=== PATIENT | female | born 1950 | race Caucasian/White ===

== ENCOUNTER 2016-11-20 08:43 | Inpatient (IN) | payer MEDICARE ==
[2016-11-20 09:07] LABS: #Basophils 0.1 thou/uL (0.0-0.2); #Eosinphils 0.2 thou/uL (0.0-0.7); #Lymphocytes 3.4 thou/uL (1.20-3.40); #Monocytes 0.9 thou/uL (0.11-0.59); #Neutrophils 7.4 thou/uL (1.40-6.50); %Basophils 0.6 % (0.0-1.0); %Eosinophils 1.6 % (0.0-10.0); %Lymphocytes 28.3 % (21.0-51.0); %Monocytes 7.5 % (0.0-10.0); Mean Platelet Volume 6.4 fL (7.4-10.4); Red Blood Cell (RBC) Count 4.42 mill/uL (4.20-5.40)
[2016-11-20] MEDS ORDERED: Midazolam HCl 2 mg/2 ml Vial ONE (09:21)
[2016-11-20] MEDS ORDERED: Fentanyl 100 MCG/2 ML VIAL ONE (09:21)
[2016-11-20] MEDS ORDERED: Heparin 10,000 UNITS/1 ML VIAL ONE (09:28)
--- NOTE | 2016-11-20 09:30 | RAD ---
PORTABLE CHEST: HISTORY: Back pain. COMPARISON: 04/25/2016 FINDINGS: The lungs appear clear. The heart is mildly enlarged but appears stable. No infiltrate or effusion is seen. No significant vascular congestion. IMPRESSION: No acute abnormality. POS: [facility]
[2016-11-20 09:35] LABS: ALT (SGPT) 32 U/L (8-55); AST (SGOT) 14 U/L (5-34); Alkaline Phosphatase 110 U/L (40-150); Anion Gap 14 mmol/L (10-20); BUN (Urea Nitrogen) 21 mg/dL (9.8-20.1); Bilirubin, Total 0.3 mg/dL (0.2-1.2); CK (CPK) 20 U/L (29-168); Calc. Creatinine Clearance 0 mL/min (70-130); Calcium 9.7 mg/dL (7.8-10.44); Carbon Dioxide 24 mmol/L (23-31); Chloride 106 mmol/L (98-107); Estimated GFR-MDRD 54; Globulin 3.8 g/dL (2.4-3.5); Lipase 18 U/L (8-78); Protein, Total 7.6 g/dL (6.0-8.3)
[2016-11-20 09:37] LABS: Troponin I Less than 0.010 ng/mL (< 0.028)
[2016-11-20] MEDS ORDERED: Nitroglycerin 100MG/250ML BOT 250 ML ONE (09:39)
[2016-11-20 10:52] VITALS: BMI 31.7
[2016-11-20] MEDS ORDERED: Lisinopril 10 MG TAB PO SCH (11:15)
[2016-11-20] MEDS ORDERED: Sodium Chloride 0.9% 1,000 ML IV SCH (11:15)
[2016-11-20] MEDS ORDERED: Metoprolol Tartrate 25 MG TAB PO SCH (11:15)
[2016-11-20] MEDS: Lisinopril 10 MG TAB PO SCH ×2 (11:40→21:53)
[2016-11-20] MEDS: Metoprolol Tartrate 25 MG TAB PO SCH ×2 (11:40→21:54)
[2016-11-20 12:34] LABS: Troponin I 0.398 ng/mL (< 0.028)
--- NOTE | 2016-11-20 13:28 | HP ---
DATE OF ADMISSION: 11/20/2016 REASON FOR ADMISSION: Acute inferior myocardial infarction. HISTORY OF PRESENT ILLNESS: Ms. Ashley Badillo is a 66-year-old woman. She was at home doing well this morning when she had the sudden onset of severe substernal chest pain, which was unrelenting. She called an ambulance and was brought here to the emergency room. The initial EKG showed ST eleva tion in the inferior leads. The patient did have ST elevation in lead III. The current EKG is not on the chart for further review. The patient has never had pain like that previously otherwise had been moderately active and no major medical problems other than will be outlined below. ALLERGIES: AZITHROMYCIN, BACITRACIN, CODEINE, LATEX GLOVES, PENICILLIN, PREDNISONE MEDICATIONS: 1. The full list is still due, but she takes amlodipine, unknown dose.E 2. Lisinopril, unknown dose. 3. Nonsteroidal anti-inflammatory. Other medicines are still being discovered and documented. PAST MEDICAL HISTORY: As mentioned, she has a history of hypertension. She said she takes metformi n. She thinks she does not have diabetes, but reviewing the chart, she does have a history of high blood sugar unless March was elevated, indicates she probably does have diet controlled diabetes. FAMILY HISTORY: Negative for heart disease at a young age. SOCIAL HISTORY: No alcohol or tobacco. REVIEW OF SYSTEMS: Constitutional: No significant weight gain or loss. Vision: No changes. Hear ing: No changes. Pulmonary: No cough or wheezing. Gastrointestinal: No nausea, vomiting, diarrh ea. Skin: No rashes. Neurologic: No unilateral weakness or numbness. Psychiatric: No unusual d epression or anxiety. Hematologic: No unusual bruising. Genitourinary: No burning with urination . Musculoskeletal: No unusual joint pain. LABORATORY AND X-RAY FINDINGS: Initial EKG showed ST elevation in the inferior leads. The EKG is b eing located right now and did get a look at prior going to the emergency room, did show ST elevatio n in lead III. The EKG is not available for me to review, right this moment, but the [employer] Analyst she clearly had ST el evation in lead III. Cardiac exams initially were negative. ASSESSMENT: 1. Acute inferior myocardial infarction. 2. Hypertension. 3. Diabetes, diet controlled. PLAN: 1. The patient was advised to go to the cardiac catheterization urgently. She is not allergic to I ODINE. Discussed risks of stroke, heart attack, IODINE allergy, loss of blood supply to the leg or kidney, stent thrombosis, stent restenosis. The patient understands and wishes to proceed. Arrange ments were made to do this in immediate basis. 2. The patient was successfully treated with stent implantation 2.5 x 16 drug-eluting stent, placed successfully in the distal right coronary artery. 3. Hypertension. 4. LOLI inhibitors. 5. Beta blockers. 6. Statin therapy will be used. 7. Further care dictated by hospital course. The patient has improved status currently after stent implantation on an emergency basis.
[2016-11-20] MEDS: Nitroglycerin 2% Ointment 1 INCH/1 GM Packet TOP SCH ×2 (14:24→21:59)
[2016-11-20] MEDS ORDERED: cloNIDine HCl 0.1 MG TAB PO SCH (15:00)
[2016-11-20] MEDS: Fentanyl 100 MCG/2 ML VIAL SLOW IVP SCH ×2 (15:04→15:19)
--- NOTE | 2016-11-20 15:14 | EKG ---
Test Reason : POST STENT X 2 - RCA Blood Pressure : / mmHG Vent. Rate : 079 BPM Atrial Rate : 079 BPM P-R Int : 192 ms QRS Dur : 086 ms QT Int : 412 ms P-R-T Axes : 048 017 001 degrees QTc Int : 472 ms Normal sinus rhythm Normal ECG Confirmed by RICHMOND MACK ([id number]) on 11/20/2016 3:14:00 PM Referred By: NIDHI Confirmed By:RICHMOND MACK
[2016-11-20] MEDS ORDERED: Fentanyl 100 MCG/2 ML VIAL SLOW IVP SCH (16:00)
[2016-11-20] MEDS ORDERED: Iopamidol 370 76% 50 ML VIAL FS ONE (16:18)
[2016-11-20] MEDS ORDERED: Iopamidol 370 76% 100 ML VIAL ONE (16:18)
[2016-11-20 17:59] LABS: Troponin I 2.014 ng/mL (< 0.028)
[2016-11-20] MEDS ORDERED: Atorvastatin Calcium 40 MG TAB PO SCH (21:00)
[2016-11-20] MEDS: TICAGRELOR 90 MG TABLET PO SCH (21:58)
[2016-11-21] MEDS ORDERED: Heparin 10,000 UNITS/ 10 ML VIAL ONE (01:00)
[2016-11-21] MEDS ORDERED: Nitroglycerin 0.4 MG TAB (25 Tab Bottle) ONE (01:00)
[2016-11-21 04:54] LABS: #Eosinphils 0.1 thou/uL (0.0-0.7); #Lymphocytes 2.2 thou/uL (1.20-3.40); #Monocytes 0.8 thou/uL (0.11-0.59); #Neutrophils 7.8 thou/uL (1.40-6.50); %Basophils 0.1 % (0.0-1.0); %Eosinophils 1.2 % (0.0-10.0); %Lymphocytes 19.9 % (21.0-51.0); %Monocytes 6.9 % (0.0-10.0); Hematocrit 32.5 % (36.0-47.0); Mean Platelet Volume 6.8 fL (7.4-10.4); Red Blood Cell (RBC) Count 3.77 mill/uL (4.20-5.40); White Blood Cell (WBC) Count 10.8 thou/uL (4.8-10.8)
[2016-11-21 05:11] LABS: ALT (SGPT) 23 U/L (8-55); AST (SGOT) 20 U/L (5-34); Alkaline Phosphatase 86 U/L (40-150); Anion Gap 10 mmol/L (10-20); BUN (Urea Nitrogen) 17 mg/dL (9.8-20.1); Bilirubin, Total 0.3 mg/dL (0.2-1.2); Calc. Creatinine Clearance 93 mL/min (70-130); Calcium 9.1 mg/dL (7.8-10.44); Carbon Dioxide 25 mmol/L (23-31); Chloride 108 mmol/L (98-107); Cholesterol 153 mg/dl (< 200 Desired); Estimated GFR-MDRD 78; Globulin 3.2 g/dL (2.4-3.5); LDL Cholesterol, Calculated 97 mg/dL; Protein, Total 6.5 g/dL (6.0-8.3)
[2016-11-21] MEDS: FLU VACC TS2017-18 (>65YR) 0.5 ML SYRINGE IM ONE ×2 (05:50→20:56)
[2016-11-21] MEDS: Nitroglycerin 2% Ointment 1 INCH/1 GM Packet TOP SCH ×3 (06:24→20:43)
--- NOTE | 2016-11-21 09:12 | PRG ---
DATE OF SERVICE: 11/21/2016 SUBJECTIVE: Ms. Badillo is doing very well today. No chest pain or pressure, sitting up in bed, n o complaints. PHYSICAL EXAMINATION: VITAL SIGNS: Blood pressure 128/69, pulse 70 regular. LUNGS: Clear. CARDIAC: Normal S1, normal S2. ABDOMEN: Soft, nontender. EXTREMITIES: There is no edema. ASSESSMENT: 1. Status post inferior myocardial infarction treated with PCI (drug-coated stent 2.5 x 16 mm stent in the distal right coronary artery). 2. Relatively small troponin rise 2.0 yesterday at 1721. Nearly 12 hours after the infarct. 3. Cholesterol level of LDL 97. 4. Some history of intolerance to statins, she thinks maybe Lovastatin 5. Hypertension, controlled. PLAN: 1. Change beta arlin, long-acting. 2. LOLI inhibitors. 3. She is on amlodipine. 4. Aspirin and Brilinta, especially in view of the small diameter vessel with the stents placed. 5. Reduce atorvastatin dose, probably cut it down even lower tomorrow. Probably home tomorrow morning. The patient is doing quite well.
[2016-11-21] MEDS: Lisinopril 10 MG TAB PO SCH ×2 (09:21→20:41)
[2016-11-21] MEDS: TICAGRELOR 90 MG TABLET PO SCH ×2 (09:22→20:42)
[2016-11-21] MEDS: Cefdinir 300 MG CAP PO SCH (09:59)
[2016-11-21 10:28] LABS: Troponin I 2.278 ng/mL (< 0.028)
--- NOTE | 2016-11-21 15:00 | EKG ---
Test Reason : Blood Pressure : / mmHG Vent. Rate : 066 BPM Atrial Rate : 066 BPM P-R Int : 160 ms QRS Dur : 088 ms QT Int : 422 ms P-R-T Axes : 009 010 002 degrees QTc Int : 442 ms Normal sinus rhythm T wave abnormality, consider inferior ischemia Abnormal ECG Confirmed by RICHMOND MACK ([id number]) on 11/21/2016 3:00:20 PM Referred By: NIDHI Confirmed By:RICHMOND MACK
[2016-11-21] MEDS ORDERED: Atorvastatin Calcium 40 MG TAB PO SCH (21:00)
[2016-11-22] MEDS: Nitroglycerin 2% Ointment 1 INCH/1 GM Packet TOP SCH (05:51)
[2016-11-22 09:12] VITALS: BP 127/80; TEMP 98.1
[2016-11-22] MEDS: Cefdinir 300 MG CAP PO SCH (09:23)
[2016-11-22] MEDS: Lisinopril 10 MG TAB PO SCH (09:23)
[2016-11-22] MEDS: TICAGRELOR 90 MG TABLET PO SCH (09:23)
--- NOTE | 2016-11-22 09:38 | ULT ---
ULTRASOUND LOWER EXTREMITY ARTERIOVASCULAR UNILATERAL: History Groin soreness post TCI. COMPARISON: None. FINDINGS: The examination was performed for the evaluation of pneudoaneurysm. No pseudoaneurysm is seen. No large hematoma. IMPRESSION: No pseudoaneurysm or hematoma of the right groin. POS: [facility]
--- NOTE | 2016-11-22 13:48 | DIS ---
FINAL DIAGNOSES: 1. Status post small myocardial infarction, ST elevation with only a peak troponin of 2.278. 2. Coronary artery disease. 3. Hypertension. MEDICATIONS AT THE TIME OF DISCHARGE: 1. Aspirin 81 mg a day. 2. Atorvastatin 20 mg a day. 3. Omnicef for 3 more days per the patient's primary care physician. 4. Lisinopril 10 mg twice a day. 5. Toprol-XL 25 mg a day. 6. Seroquel 7. Sertraline. 8. Brilinta 90 mg twice a day. 9. Amlodipine 5 mg a day. Please see admission note for full details. Briefly, the patient presented to the emergency room wi th chest pain and ST elevation in the inferior leads. Specifically, there was ST elevation in leads III and slightly elevated in AVF. She was taken to the civil laboratory technician. She was found to have distal occ lusion of the right coronary artery, a 2.5 x 16 mm drug-eluting stent was placed. She also had 50% diagonal lesion and 70% obtuse marginal lesion. The patient did quite well following that. She had some groin soreness today. We went ahead and did an ultrasound of her groin. There is no pseudoan eurysm. She will be asked to see me in the office in about a month. Prognosis would appear to be f avorable. The patient does have a small diameter vessel or the stent was placed, therefore I have gladys German as antiplatelet therapy along with aspirin.
[2016-11-22] MEDS ORDERED: Atorvastatin Calcium 20 MG TAB PO SCH (21:00)
[2016-11-22] MEDS ORDERED: Atorvastatin Calcium 40 MG TAB PO SCH (21:00)
== END 2016-11-22 11:17 | disposition home or self-care (01) | DRG 247 ==
LOC: ERS 08:43 → CCU 09:10 → SDC/OP 09:40 → CCU 09:54 → 2NO 11-21 11:30
PROVIDERS: ADMIT Internal Medicine Cardiovascular Disease; ATTEND Internal Medicine Cardiovascular Disease
PROC: 027034Z Dilation of Coronary Artery, One Artery with Drug-eluting Intraluminal Device, Percutaneous Approach (ICD-10-PCS; principal; 2016-11-20)
PROC: 4A023N7 Measurement of Cardiac Sampling and Pressure, Left Heart, Percutaneous Approach (ICD-10-PCS; 2016-11-20)
PROC: B2151ZZ Fluoroscopy of Left Heart using Low Osmolar Contrast (ICD-10-PCS; 2016-11-20)
PROC: B2111ZZ Fluoroscopy of Multiple Coronary Arteries using Low Osmolar Contrast (ICD-10-PCS; 2016-11-20)
PROC: 02C03ZZ Extirpation of Matter from Coronary Artery, One Artery, Percutaneous Approach (ICD-10-PCS; 2016-11-20)
PROC: 027034Z Dilation of Coronary Artery, One Artery with Drug-eluting Intraluminal Device, Percutaneous Approach (ICD-10-PCS; 2016-11-20)
DX: I21.19 ST elevation (STEMI) myocardial infarction involving other coronary artery of inferior wall (principal); I10 Essential (primary) hypertension; I25.10 Atherosclerotic heart disease of native coronary artery without angina pectoris; E11.9 Type 2 diabetes mellitus without complications; Z88.0 Allergy status to penicillin; Z88.5 Allergy status to narcotic agent; Z88.8 Allergy status to other drugs, medicaments and biological substances; Z88.1 Allergy status to other antibiotic agents; Z91.040 Latex allergy status
CPT/HCPCS: 36415; 71010; 76942; 80053; 80061; 82553; 83690; 84484; 85025; 85347; 90471; 90682; 92941; 93005; 93010; 93458; 93798; 93926; 96374; 99152; 99153; C1769; C1874; C1887; C9606; G0008; J1644; J2250; J3010; Q2036

== ENCOUNTER 2017-05-25 12:14 | Outpatient (CLI) | payer MEDICARE, OTHER | END 2017-05-25 12:15 | disposition home or self-care (01) | LOC: BICRAD 12:14 | PROVIDERS: ATTEND Physician Assistant Medical | DX: R05 Cough (principal); Z87.01 Personal history of pneumonia (recurrent) | CPT/HCPCS: 71046 ==

== ENCOUNTER 2017-12-16 05:24 | Emergency (ER) | payer MEDICARE, OTHER ==
[2017-12-16] MEDS ORDERED: HYDROcodone/Acetaminophen 5/325 mg Tablet ONE (05:47)
[2017-12-16] MEDS ORDERED: Bupivacaine 0.5% 10 ML VIAL ONE (05:48)
== END 2017-12-16 06:48 | disposition home or self-care (01) ==
LOC: ERS 05:24
DX: L91.8 Other hypertrophic disorders of the skin (principal); D57.3 Sickle-cell trait; F84.0 Autistic disorder
CPT/HCPCS: 20553; J3490

== ENCOUNTER 2018-01-02 06:12 | Day surgery (SDC) | payer MEDICARE, OTHER ==
[2018-01-01 14:50] VITALS: BMI 31.8
--- NOTE | 2018-01-01 18:32 | HP ---
HISTORY OF PRESENT ILLNESS: The patient is a 67-year-old female with several-month history of pain and triggering in her right thumb and right little finger. She initially obtained relief from injections, but has had recurrence. PAST MEDICAL HISTORY: The patient is otherwise in good health. She had a heart attack and had a cardiac stent placement one year ago by Dr. Cardona and has been on Plavix, but that was stopped in anticipation of her surgery. She also has history of diabetes and hypertension. MEDICATIONS: Other medications include: 1. Metformin. 2. Lisinopril. 3. Amlodipine. 4. Seroquel. 5. Phenergan. ALLERGIES: SHE IS ALLERGIC TO PENICILLIN, ERYTHROMYCIN, CODEINE, PREDNISONE, AND BACITRACIN. FAMILY HISTORY: Otherwise, unremarkable. SOCIAL HISTORY: Otherwise, unremarkable. REVIEW OF SYSTEMS: Otherwise, unremarkable. PHYSICAL EXAMINATION: GENERAL: Healthy female. HEENT: Unremarkable. NECK: Supple. CHEST: Clear. HEART: Regular rate and rhythm. ABDOMEN: Soft, nontender. PELVIC: Deferred. RECTAL: Deferred. BREASTS: Deferred. EXTREMITIES: Pertinent findings of her right hand, there is tenderness and prominence with the A1 ramone of the right thumb and right little finger. There is triggering with range of motion. All tendons are intact. NEUROVASCULAR: Intact. IMPRESSION: Trigger finger of right thumb and right little finger. PLAN: Trigger finger release of right thumb and right little finger. The nature of the surgery and length of recovery and potential complications such as infection, loss of motion, digital nerve injury, recurrence, need for additional treatment and repeat surgery were discussed in detail. Job ID: [id number]
[2018-01-02 06:47] LABS: #Eosinphils 0.2 thou/uL (0.0-0.7); #Lymphocytes 2.1 thou/uL (1.20-3.40); #Monocytes 0.4 thou/uL (0.11-0.59); #Neutrophils 5.5 thou/uL (1.40-6.50); %Basophils 0.6 % (0.0-1.0); %Eosinophils 2.8 % (0.0-10.0); %Lymphocytes 25.8 % (21.0-51.0); %Monocytes 5.2 % (0.0-10.0); %Neutrophils 65.7 % (42.0-75.0); Hemoglobin 12.6 g/dL (12.0-16.0); Mean Corpuscular HGB CONC 33.2 g/dL (32.0-36.0); Mean Corpuscular Hemoglobin 28.1 pg (27.0-31.0); Mean Corpuscular Volume 84.7 fL (78.0-98.0); Mean Platelet Volume 6.9 fL (7.4-10.4); Platelet Count 244 thou/uL (130-400); RBC Distribution Width 12.3 % (11.5-14.5); Red Blood Cell (RBC) Count 4.48 mill/uL (4.20-5.40); White Blood Cell (WBC) Count 8.3 thou/uL (4.8-10.8)
[2018-01-02] MEDS ORDERED: Bupivacaine PF 0.5% 30 ML VIAL ONE (06:47)
[2018-01-02] MEDS ORDERED: Lidocaine 1% (PF) 30 ML VIAL ONE (06:48)
[2018-01-02 07:01] LABS: Anion Gap 11 mmol/L (10-20); BUN (Urea Nitrogen) 21 mg/dL (9.8-20.1); Calc. Creatinine Clearance 85 mL/min (70-130); Calcium 9.6 mg/dL (7.8-10.44); Carbon Dioxide 28 mmol/L (23-31); Chloride 106 mmol/L (98-107); Estimated GFR-MDRD 68; Glucose 118 mg/dL (80-115); Potassium 4.3 mmol/L (3.5-5.1); Sodium 141 mmol/L (136-145)
[2018-01-02] MEDS ORDERED: Clindamycin/D5W 900 mg/50 ml Premix Bag ONE (07:07)
[2018-01-02] MEDS ORDERED: Fentanyl 100 MCG/2 ML VIAL ONE (07:27)
[2018-01-02] MEDS ORDERED: PHENYLEPHRINE-NS 100 MCG/ML 10 ML SYRINGE ONE ×2 (08:36→09:03)
[2018-01-02] MEDS ORDERED: ePHEDrine/0.9% NaCl/PF SYRINGE 50 mg/10 ml ONE (09:03)
[2018-01-02] MEDS ORDERED: Ondansetron PF 4 MG/2 ML Vial ONE (09:03)
[2018-01-02] MEDS ORDERED: Glycopyrrolate 0.2 MG/ML 5 ML SYRINGE ONE (09:03)
[2018-01-02] MEDS ORDERED: PROPOFOL 200 MG/20 ML VIAL ONE (09:03)
[2018-01-02] MEDS ORDERED: Lidocaine 1% PF 5 ML VIAL ONE (09:03)
--- NOTE | 2018-01-02 14:21 | OP ---
DATE OF PROCEDURE: 01/02/2018 ANESTHESIA: General. PREOPERATIVE DIAGNOSIS: Trigger fingers, right thumb and right fifth finger. POSTOPERATIVE DIAGNOSIS: Trigger fingers, right thumb and right fifth finger. PROCEDURE PERFORMED: Trigger finger release, right thumb and right fifth finger. DESCRIPTION OF PROCEDURE: After satisfactory anesthesia supine position, the patient was prepped and draped in the routine manner. The right arm was elevated and exsanguinated with an Esmarch bandage with tourniquet inflated to 250 mmHg. The thumb was addressed first. A 2 cm transverse incision was made over the A1 ramone in the palm to the proximal thumb MP flexion crease, carried down through subcutaneous tissues. Bleeding points were controlled with Bovie cautery. Digital neurovascular bundles were identified and retracted and protected throughout the procedure. Using sharp and blunt dissection, the proximal edge of the A1 ramone was identified and divided in a proximal to distal direction with small scissors until the ramone was completely released. A small segment of ramone was also excised to make sure . Following this, a flexor tendon can be pulled up into the wound and there was full range of motion without triggering or catching. Attention was then directed to the fifth finger. A 2 cm incision was made over the A1 ramone of the right fifth finger and carried down through subcutaneous tissue. Bleeding points were controlled with Bovie cautery. Digital neurovascular bundles were identified and protected throughout the procedure. Using the sharp and blunt dissection, the flexor tendon sheath was identified and then the A1 ramone was divided with small scissors in a proximal to distal direction. Small segment of ramone was also removed. Following this, the flexor tendons could be pulled into the wound, and there was full range of motion without triggering. Both wounds were then thoroughly irrigated. The subcutaneous tissues of both wounds were injected with approximately 15 mL of 1% lidocaine each. The skin was then closed with interrupted 3-0 nylon. A sterile bulky compressive dressing was applied. The tourniquet deflated for 25 minutes. Hand promptly pinked up. The patient was awakened and taken to the recovery room in stable condition. There were no apparent intraoperative complications. Estimated blood loss was negligible. The patient will be discharged home in satisfactory condition with some ice, elevation. Given written care instructions. She was given prescription for [place] 5 for pain of 30 tablets. She will be rechecked in my office in 10 to 14 days, or sooner if there are any problems prior to that time. Job ID: [id number]
== END 2018-01-02 10:30 | disposition home or self-care (01) ==
LOC: SDC 06:12
PROVIDERS: ATTEND Orthopaedic Surgery
PROC: 0LN70ZZ Release Right Hand Tendon, Open Approach (ICD-10-PCS; principal; 2018-01-02)
PROC: 0LN70ZZ Release Right Hand Tendon, Open Approach (ICD-10-PCS; 2018-01-02)
DX: M65.311 Trigger thumb, right thumb (principal); M65.351 Trigger finger, right little finger; E11.9 Type 2 diabetes mellitus without complications; I25.2 Old myocardial infarction; I10 Essential (primary) hypertension; Z79.02 Long term (current) use of antithrombotics/antiplatelets; Z79.1 Long term (current) use of non-steroidal anti-inflammatories (NSAID); Z79.84 Long term (current) use of oral hypoglycemic drugs; Z79.899 Other long term (current) drug therapy; Z88.0 Allergy status to penicillin; Z88.1 Allergy status to other antibiotic agents; Z88.5 Allergy status to narcotic agent; Z88.8 Allergy status to other drugs, medicaments and biological substances; Z91.040 Latex allergy status; Z95.5 Presence of coronary angioplasty implant and graft
CPT/HCPCS: 36415; 36416; 80048; 85025; J2001; J2405; J2704; J3010; J3490; S0020

== ENCOUNTER 2019-10-21 09:38 | Outpatient (CLI) | payer MEDICARE, OTHER ==
--- NOTE | 2019-10-21 10:20 | RAD ---
EXAM: XR Lumbar Spine 2 Or 3 View PROVIDED CLINICAL HISTORY: Lumbar disc disease. Patient plans of bilateral hip pain and groin pain. COMPARISON: None FINDINGS: There are 5 nonrib-bearing lumbar-type vertebral bodies. Facet degenerative changes are seen in the l ower lumbar spine. There is grade 1 anterolisthesis of L4 on L5 measuring 5 mm with slight grade 1 anterolisthesis of L5 on S1 measuring approximately 6 mm. There is narrowing of the L4-5 and L5-S1 in tervertebral disc spaces. The vertebral body heights are within normal limits. No fracture is seen. Minimal vascular calcifications are seen in the abdominal aorta. IMPRESSION: Degenerative changes lower lumbar spine with grade 1 anterolisthesis of L4 on L5 and L5 on S1.
--- NOTE | 2019-10-21 11:35 | MRI ---
EXAM: MRI thoracic spine without contrast HISTORY: Thoracic disc disease and back pain for years COMPARISON: None TECHNIQUE: Multiplanar multisequence MR images were obtained of the thoracic spine without contrast. FINDINGS: The vertebral bodies and intervertebral discs demonstrate normal height and alignment without fractur e or subluxation. There appear to be hemangiomas within the T4 and T12 vertebral bodies. Small anterior osteophytes are seen in the mid to lower thoracic spine. The visualized cord demonstrates normal signal throughout. The prevertebral soft tissues are unremarkable. No paraspinal soft tissue abnormality is seen. T1/2: No significant posterior bulge or protrusion. No posterior facet arthrosis. No central canal stenosis. No neural foraminal stenosis. T2/3: No significant posterior bulge or protrusion. No posterior facet arthrosis. No central canal stenosis. No neural foraminal stenosis. T3/4: No significant posterior bulge or protrusion. No posterior facet arthrosis. No central canal stenosis. No neural foraminal stenosis. T4/5: No significant posterior bulge or protrusion. No posterior facet arthrosis. No central canal stenosis. No neural foraminal stenosis. T5/6: No significant posterior bulge or protrusion. No posterior facet arthrosis. No central canal stenosis. No neural foraminal stenosis. T6/7: No significant posterior bulge or protrusion. No posterior facet arthrosis. No central canal stenosis. No neural foraminal stenosis. T7/8: No significant posterior bulge or protrusion. No posterior facet arthrosis. No central canal stenosis. No neural foraminal stenosis. T8/9: No significant posterior bulge or protrusion. No posterior facet arthrosis. No central canal stenosis. No neural foraminal stenosis. T9/10: No significant posterior bulge or protrusion. No posterior facet arthrosis. No central canal stenosis. No neural foraminal stenosis. T10/11: No significant posterior bulge or protrusion. No posterior facet arthrosis. No central allen l stenosis. No neural foraminal stenosis. T11/12: No significant posterior bulge or protrusion. No posterior facet arthrosis. No central allen l stenosis. No neural foraminal stenosis. T12/L1: No significant posterior bulge or protrusion. No posterior facet arthrosis. No central allen l stenosis. No neural foraminal stenosis. IMPRESSION: Mild degenerative changes without significant neural foraminal or central canal stenosis.
--- NOTE | 2019-10-21 12:02 | RAD ---
THORACIC SPINE 3 VIEWS: Date: 10/21/2019 INDICATION: Pain. FINDINGS: Thoracic vertebra maintain normal height and alignment. Mild degenerative spurring. No lytic or blast ic process. The disc spaces are preserved. IMPRESSION: Unremarkable thoracic spine with very mild degenerative osteophytes seen. POS: [facility]
== END 2019-10-21 09:39 | disposition home or self-care (01) ==
LOC: BICMRI 09:38
PROVIDERS: ATTEND Family Medicine
DX: M51.9 Unspecified thoracic, thoracolumbar and lumbosacral intervertebral disc disorder (principal); G89.4 Chronic pain syndrome; M54.14 Radiculopathy, thoracic region; M25.78 Osteophyte, vertebrae; M47.816 Spondylosis without myelopathy or radiculopathy, lumbar region; M43.16 Spondylolisthesis, lumbar region; M43.17 Spondylolisthesis, lumbosacral region; M47.814 Spondylosis without myelopathy or radiculopathy, thoracic region
CPT/HCPCS: 72070; 72100; 72146

== ENCOUNTER 2019-11-11 12:09 | Outpatient (CLI) | payer MEDICARE, OTHER ==
--- NOTE | 2019-11-11 12:50 | RAD ---
Left ankle 3 views HISTORY: Injury. FINDINGS: Joint spaces are preserved. Ankle mortise and talar dome are intact. Mild osteophytosis. No acute fracture or dislocation. Plantar heel spur noted at the inferior aspect of the calcaneus. IMPRESSION : Mild osteoarthritic changes. No acute osseous abnormalities are demonstrated.
--- NOTE | 2019-11-11 12:51 | RAD ---
Left foot 3 views HISTORY: Injury. Pain. FINDINGS: Lisfranc joint alignment is anatomic. Plantar arch is maintained. Small plantar heel spur. Mild joint space narrowing of the interphalangeal joints. Subchondral sclerosis most pronounced at th e first metatarsophalangeal joint with mild bunion deformity. Minimal hallux valgus. IMPRESSION : Mild osteoarthritic changes, most pronounced at the first metatarsophalangeal joint. No acute osseous abnormalities are demonstrated.
== END 2019-11-11 12:10 | disposition home or self-care (01) ==
LOC: BICRAD 12:09
PROVIDERS: ATTEND Family Medicine
DX: M79.672 Pain in left foot (principal); M19.072 Primary osteoarthritis, left ankle and foot

== ENCOUNTER 2020-12-18 09:46 | Inpatient (IN) | payer MEDICARE, OTHER ==
[2020-12-18 10:24] LABS: #Basophils 0.1 thou/uL (0.0-0.2); #Eosinphils 0.2 thou/uL (0.0-0.7); #Lymphocytes 2.9 thou/uL (1.20-3.40); #Monocytes 0.5 thou/uL (0.11-0.59); #Neutrophils 5.3 thou/uL (1.40-6.50); %Basophils 0.7 % (0.0-1.0); %Eosinophils 2.7 % (0.0-10.0); %Lymphocytes 32.2 % (21.0-51.0); %Monocytes 5.9 % (0.0-10.0); %Neutrophils 58.6 % (42.0-75.0); Hemoglobin 12.9 g/dL (12.0-16.0); Mean Corpuscular HGB CONC 33.4 g/dL (32.0-36.0); Mean Corpuscular Volume 86.6 fL (78.0-98.0); Mean Platelet Volume 6.7 fL (7.4-10.4); Platelet Count 249 thou/uL (130-400); RBC Distribution Width 12.8 % (11.5-14.5); Red Blood Cell (RBC) Count 4.46 mill/uL (4.20-5.40); White Blood Cell (WBC) Count 9.1 thou/uL (4.8-10.8)
[2020-12-18 10:45] LABS: ALT (SGPT) 18 U/L (8-55); AST (SGOT) 20 U/L (5-34); Albumin 4.1 g/dL (3.4-4.8); Alkaline Phosphatase 82 U/L (40-110); Anion Gap 12 mmol/L (10-20); BUN (Urea Nitrogen) 19 mg/dL (9.8-20.1); Bilirubin, Total 0.3 mg/dL (0.2-1.2); Calc. Creatinine Clearance 0 mL/min (70-130); Calcium 9.7 mg/dL (7.8-10.44); Carbon Dioxide 28 mmol/L (23-31); Chloride 102 mmol/L (98-107); Globulin 3.3 g/dL (2.4-3.5); Glucose 110 mg/dL (80-115); Potassium 4.1 mmol/L (3.5-5.1); Protein, Total 7.4 g/dL (5.8-8.1); Sodium 138 mmol/L (136-145)
[2020-12-18] MEDS ORDERED: Potassium Chloride 10 MEQ TAB PO PRN (13:34)
[2020-12-18 13:37] LABS: Troponin I Less than 0.010 ng/mL (< 0.028)
[2020-12-18] MEDS: Gabapentin 300 MG CAP PO SCH ×3 (13:55→23:40)
[2020-12-18] MEDS: tiZANidine HCl 4 MG TAB PO SCH ×3 (13:57→23:42)
[2020-12-18 14:25] LABS: Hemoglobin A1c 5.6 % (4.0-6.0)
[2020-12-18 15:23] LABS: SARS-CoV-2 NAA Rapid Test Not Detected (NotDetected)
[2020-12-18] MEDS ORDERED: Sodium Chloride 0.9% 1,000 ML IV SCH (15:45)
[2020-12-18] MEDS ORDERED: metFORMIN 500 MG TAB PO SCH (17:00)
[2020-12-18 18:20] LABS: Troponin I Less than 0.010 ng/mL (< 0.028)
[2020-12-18] MEDS: Enoxaparin Sodium 80 MG/0.8 ML SYRINGE SC SCH (19:22)
[2020-12-18] MEDS: Docusate 100 MG CAP PO SCH (23:40)
[2020-12-19 04:26] VITALS: BMI 33.8
[2020-12-19] MEDS: Enoxaparin Sodium 80 MG/0.8 ML SYRINGE SC SCH ×2 (05:45→17:36)
[2020-12-19 06:09] LABS: #Eosinphils 0.2 thou/uL (0.0-0.7); #Lymphocytes 1.9 thou/uL (1.20-3.40); #Monocytes 0.4 thou/uL (0.11-0.59); #Neutrophils 3.7 thou/uL (1.40-6.50); %Basophils 0.4 % (0.0-1.0); %Eosinophils 2.9 % (0.0-10.0); %Monocytes 6.4 % (0.0-10.0); %Neutrophils 59.4 % (42.0-75.0); Mean Corpuscular HGB CONC 33.7 g/dL (32.0-36.0); Mean Corpuscular Hemoglobin 29.3 pg (27.0-31.0); Mean Platelet Volume 6.7 fL (7.4-10.4); Platelet Count 196 thou/uL (130-400); RBC Distribution Width 12.6 % (11.5-14.5); Red Blood Cell (RBC) Count 4.09 mill/uL (4.20-5.40); White Blood Cell (WBC) Count 6.3 thou/uL (4.8-10.8)
[2020-12-19 06:29] LABS: Anion Gap 12 mmol/L (10-20); BUN (Urea Nitrogen) 14 mg/dL (9.8-20.1); Calc. Creatinine Clearance 86 mL/min (70-130); Calcium 9.6 mg/dL (7.8-10.44); Carbon Dioxide 26 mmol/L (23-31); Cardiac Risk 5.1 (Less than 4.5); Chloride 107 mmol/L (98-107); Cholesterol 178 mg/dl (< 200 Desired); Glucose 105 mg/dL (80-115); HDL Cholesterol 35 mg/dL (>60 Neg Risk); LDL Cholesterol, Calculated 98 mg/dL; Potassium 4.5 mmol/L (3.5-5.1); Sodium 140 mmol/L (136-145); Triglycerides 226 mg/dL (Less than 150)
[2020-12-19] MEDS: Cholecalciferol 1,000 UNITS (25 MCG) TAB PO SCH (08:12)
[2020-12-19] MEDS: Aspirin Chewable 81 MG TAB PO SCH (08:12)
[2020-12-19] MEDS: Docusate 100 MG CAP PO SCH (08:14)
[2020-12-19] MEDS: Clopidogrel Bisulfate 75 MG TAB PO SCH (08:14)
[2020-12-19] MEDS: Ezetimibe 10 MG TAB PO SCH (08:16)
[2020-12-19] MEDS: DULoxetine 60 MG CAP PO SCH (08:16)
[2020-12-19] MEDS: Gabapentin 300 MG CAP PO SCH ×3 (08:17→17:33)
[2020-12-19] MEDS: tiZANidine HCl 4 MG TAB PO SCH ×3 (08:19→17:34)
[2020-12-19] MEDS: Icosapent Ethyl 1 GM CAPSULE PO SCH ×2 (08:25→19:56)
[2020-12-19] MEDS ORDERED: Mecobalamin [B12 Active] 1,000 MCG Tab.Chew PO SCH (09:00)
[2020-12-19] MEDS ORDERED: Fish Oil 1,000 MG CAP PO SCH (09:00)
[2020-12-19] MEDS ORDERED: DULoxetine 60 MG CAP PO SCH (09:00)
[2020-12-19] MEDS ORDERED: ADENOSINE 60 MG/20 ML VIAL ONE (10:02)
[2020-12-19] MEDS ORDERED: metFORMIN 500 MG TAB PO SCH (21:00)
[2020-12-20] MEDS: Docusate 100 MG CAP PO SCH ×2 (00:04→09:27)
[2020-12-20] MEDS: Gabapentin 300 MG CAP PO SCH ×2 (00:06→09:27)
[2020-12-20] MEDS: tiZANidine HCl 4 MG TAB PO SCH ×2 (00:07→09:29)
[2020-12-20] MEDS: Enoxaparin Sodium 80 MG/0.8 ML SYRINGE SC SCH (05:06)
[2020-12-20 05:42] LABS: #Eosinphils 0.2 thou/uL (0.0-0.7); #Lymphocytes 1.7 thou/uL (1.20-3.40); #Monocytes 0.4 thou/uL (0.11-0.59); %Basophils 0.3 % (0.0-1.0); %Eosinophils 2.7 % (0.0-10.0); %Lymphocytes 27.5 % (21.0-51.0); %Monocytes 6.6 % (0.0-10.0); %Neutrophils 62.9 % (42.0-75.0); Hemoglobin 11.4 g/dL (12.0-16.0); Mean Corpuscular HGB CONC 33.6 g/dL (32.0-36.0); Mean Corpuscular Volume 86.2 fL (78.0-98.0); Mean Platelet Volume 6.6 fL (7.4-10.4); Platelet Count 185 thou/uL (130-400); RBC Distribution Width 12.5 % (11.5-14.5); Red Blood Cell (RBC) Count 3.95 mill/uL (4.20-5.40); White Blood Cell (WBC) Count 6.3 thou/uL (4.8-10.8)
[2020-12-20 06:03] LABS: Anion Gap 13 mmol/L (10-20); BUN (Urea Nitrogen) 17 mg/dL (9.8-20.1); Calc. Creatinine Clearance 84 mL/min (70-130); Calcium 9.7 mg/dL (7.8-10.44); Carbon Dioxide 25 mmol/L (23-31); Chloride 105 mmol/L (98-107); Glucose 103 mg/dL (80-115); Potassium 4.2 mmol/L (3.5-5.1)
[2020-12-20 06:12] LABS: Sodium 139 mmol/L (136-145)
[2020-12-20] MEDS: Aspirin Chewable 81 MG TAB PO SCH (09:27)
[2020-12-20] MEDS: Clopidogrel Bisulfate 75 MG TAB PO SCH (09:28)
[2020-12-20] MEDS: Cholecalciferol 1,000 UNITS (25 MCG) TAB PO SCH (09:28)
[2020-12-20] MEDS: Ezetimibe 10 MG TAB PO SCH (09:29)
[2020-12-20] MEDS: DULoxetine 60 MG CAP PO SCH (09:29)
[2020-12-20] MEDS ORDERED: Nitroglycerin 0.4 MG TAB (25 Tab Bottle) SL PRN (09:50)
[2020-12-20 11:47] VITALS: BP 137/90; TEMP 98.8
[2020-12-20] MEDS: Icosapent Ethyl 1 GM CAPSULE PO SCH (12:01)
[2020-12-20] MEDS ORDERED: Rosuvastatin 10 MG TAB PO SCH (21:00)
[2020-12-21 12:39] LABS: Hemoglobin A2 2.3 % (1.8-3.2)
== END 2020-12-20 12:12 | disposition home or self-care (01) | DRG 303 ==
LOC: ERS 09:46 → NEURO 11:15
PROVIDERS: ADMIT Family Medicine; ATTEND Family Medicine
DX: I25.110 Atherosclerotic heart disease of native coronary artery with unstable angina pectoris (principal); I50.32 Chronic diastolic (congestive) heart failure; R44.3 Hallucinations, unspecified; M19.90 Unspecified osteoarthritis, unspecified site; F32.A Depression, unspecified; E11.9 Type 2 diabetes mellitus without complications; I95.9 Hypotension, unspecified; R53.82 Chronic fatigue, unspecified; M79.7 Fibromyalgia; K59.00 Constipation, unspecified; E78.5 Hyperlipidemia, unspecified; I11.0 Hypertensive heart disease with heart failure; E66.9 Obesity, unspecified; Z20.822 Contact with and (suspected) exposure to COVID-19; Z95.5 Presence of coronary angioplasty implant and graft; Z85.41 Personal history of malignant neoplasm of cervix uteri; I25.2 Old myocardial infarction; Z88.1 Allergy status to other antibiotic agents; Z91.040 Latex allergy status; Z88.0 Allergy status to penicillin; Z91.013 Allergy to seafood; Z91.018 Allergy to other foods; Z79.82 Long term (current) use of aspirin; Z79.899 Other long term (current) drug therapy; Z90.49 Acquired absence of other specified parts of digestive tract; Z90.710 Acquired absence of both cervix and uterus; Z68.38 Body mass index [BMI] 38.0-38.9, adult
CPT/HCPCS: 36415; 71045; 78452; 80048; 80053; 80061; 83021; 83036; 84443; 84484; 85025; 93005; 93017; A9500; J0153; J1650; U0002

== ENCOUNTER 2021-02-03 17:37 | Emergency (ER) | payer MEDICARE, OTHER | END 2021-02-03 19:49 | disposition home or self-care (01) | LOC: ERS 17:37 | DX: I10 Essential (primary) hypertension (principal); M19.90 Unspecified osteoarthritis, unspecified site; I25.2 Old myocardial infarction; Z79.82 Long term (current) use of aspirin; Z79.52 Long term (current) use of systemic steroids; Z79.84 Long term (current) use of oral hypoglycemic drugs; Z79.899 Other long term (current) drug therapy | CPT/HCPCS: 93005 ==

== ENCOUNTER 2021-06-15 10:50 | Outpatient (CLI) | payer MEDICARE, OTHER ==
[2021-06-15 12:29] LABS: Hemoglobin 12.1 g/dL (12.0-15.5); Mean Corpuscular HGB CONC 32.1 g/dL (32.0-36.0); Mean Corpuscular Volume 87.3 fl (81.6-98.3); Mean Platelet Volume 9.3 fl (7.4-10.4); Platelet Count 254 10x3/uL (150-450); RBC Distribution Width 13.3 % (11.5-14.5); Red Blood Cell (RBC) Count 4.32 10x6/uL (3.90-5.03); White Blood Cell (WBC) Count 9.3 10x3/uL (3.5-10.5)
[2021-06-15 12:48] LABS: Anion Gap 15 mmol/L (10-20); BUN (Urea Nitrogen) 16 mg/dL (9.8-20.1); Calc. Creatinine Clearance 0 mL/min (70-130); Carbon Dioxide 27 mmol/L (23-31); Chloride 104 mmol/L (98-107); Glucose 100 mg/dL (80-115); Potassium 4.3 mmol/L (3.5-5.1); Sodium 142 mmol/L (136-145)
[2021-06-15 22:06] LABS: SARS-CoV-2 PCR by NAA Not Detected (NotDetected)
== END 2021-06-15 10:51 | disposition home or self-care (01) ==
LOC: LABBT 10:50
PROVIDERS: ATTEND Plastic Surgery
DX: Z01.818 Encounter for other preprocedural examination (principal); Z20.822 Contact with and (suspected) exposure to COVID-19
CPT/HCPCS: 80048; 85027; 93005; U0003; U0005; 93010

== ENCOUNTER 2021-06-20 05:54 | Day surgery (SDC) | payer MEDICARE, OTHER ==
[2021-06-16 09:34] VITALS: BMI 32.4
[2021-06-20] MEDS ORDERED: Heparin 5,000 UNITS/ML VIAL ONE (06:15)
[2021-06-20] MEDS ORDERED: Ophthalmic Irrigation Solution 15 ML ONE (06:33)
[2021-06-20] MEDS ORDERED: EPINEPHrine 1 MG/ML AMP ONE (06:33)
[2021-06-20] MEDS ORDERED: Lidocaine 1% w/Epinephrine 1:100K 20 ML VIAL ONE (06:33)
[2021-06-20] MEDS ORDERED: fentaNYL Citrate/PF 100 MCG/2 ML SYRINGE ONE (06:38)
[2021-06-20] MEDS ORDERED: ceFAZolin (BATCH) 2 GM/100 ML BAG ONE (07:25)
[2021-06-20] MEDS ORDERED: Metoclopramide HCl 10 MG/2 ML VIAL ONE (07:30)
[2021-06-20] MEDS ORDERED: ePHEDrine 50 MG/ML VIAL ONE (07:30)
[2021-06-20] MEDS ORDERED: PROPOFOL 200 MG/20 ML VIAL ONE (07:30)
[2021-06-20] MEDS ORDERED: Ondansetron PF 4 MG/2 ML Vial ONE (07:30)
[2021-06-20] MEDS ORDERED: Lidocaine 1% PF 5 ML VIAL ONE (07:30)
[2021-06-20] MEDS ORDERED: PHENYLEPHRINE-NS 100 MCG/ML 10 ML SYRINGE ONE (07:30)
[2021-06-20] MEDS ORDERED: Midazolam HCl 2 mg/2 ml Vial ONE (07:33)
[2021-06-20] MEDS ORDERED: Bacitracin Zinc Ointment 30 gm TUBE ONE (08:39)
[2021-06-20] MEDS ORDERED: Fentanyl 100 MCG/2 ML VIAL ONE (10:01)
[2021-06-20] MEDS ORDERED: HYDROcodone/Acetaminophen 5/325 mg Tablet ONE (12:35)
== END 2021-06-20 13:00 | disposition home or self-care (01) ==
LOC: SDC 05:54
PROVIDERS: ATTEND Plastic Surgery
PROC: 0W020ZZ Alteration of Face, Open Approach (ICD-10-PCS; principal; 2021-06-20)
DX: H57.813 Brow ptosis, bilateral (principal); Q10.0 Congenital ptosis; H53.453 Other localized visual field defect, bilateral; I11.0 Hypertensive heart disease with heart failure; I50.9 Heart failure, unspecified; I25.2 Old myocardial infarction; J44.9 Chronic obstructive pulmonary disease, unspecified; M79.7 Fibromyalgia; Z79.02 Long term (current) use of antithrombotics/antiplatelets; Z79.82 Long term (current) use of aspirin; Z79.84 Long term (current) use of oral hypoglycemic drugs; Z79.899 Other long term (current) drug therapy; Z88.0 Allergy status to penicillin; Z88.1 Allergy status to other antibiotic agents; Z88.8 Allergy status to other drugs, medicaments and biological substances; Z91.018 Allergy to other foods; Z91.040 Latex allergy status; Z87.891 Personal history of nicotine dependence
CPT/HCPCS: J0171; J0690; J1644; J2250; J2405; J2704; J2765; J3010; J3490

== ENCOUNTER 2021-07-14 11:53 | Outpatient (CLI) | payer MEDICARE, OTHER | END 2021-07-14 11:54 | disposition home or self-care (01) | LOC: BICMAMMO 11:53 | PROVIDERS: ATTEND Family Medicine | DX: Z12.31 Encounter for screening mammogram for malignant neoplasm of breast (principal); Z80.3 Family history of malignant neoplasm of breast | CPT/HCPCS: 77063; 77067 ==

== ENCOUNTER 2022-10-25 13:34 | Outpatient (CLI) | payer MEDICARE, OTHER | END 2022-10-25 13:35 | disposition home or self-care (01) | PROVIDERS: ATTEND Psychiatry & Neurology Neurology | DX: R42 Dizziness and giddiness (principal) | CPT/HCPCS: 93225; 93226 ==

== ENCOUNTER 2022-10-26 13:26 | Outpatient (CLI) | payer MEDICARE, OTHER | END 2022-10-26 13:27 | disposition home or self-care (01) | LOC: MRI 13:26 | PROVIDERS: ATTEND Psychiatry & Neurology Neurology | DX: R42 Dizziness and giddiness (principal) | CPT/HCPCS: 70553 ==

== ENCOUNTER 2023-03-30 20:26 | Emergency (ER) | payer MEDICARE, OTHER ==
[2023-03-30] MEDS ORDERED: Ketorolac Tromethamine 30 MG (1 mL) VIAL ONE (21:26)
[2023-03-30 21:52] LABS: #Eosinphils 0.1 thou/uL (0.0-0.7); #Monocytes 0.5 thou/uL (0.11-0.59); #Neutrophils 8.3 thou/uL (1.40-6.50); %Basophils 0.2 % (0.0-1.0); %Eosinophils 1.2 % (0.0-10.0); %Lymphocytes 14.7 % (21.0-51.0); %Monocytes 4.3 % (0.0-10.0); %Neutrophils 78.5 % (42.0-75.0); Hematocrit 38.1 % (36.0-47.0); Hemoglobin 12.6 g/dL (12.0-16.0); Mean Corpuscular HGB CONC 33.1 g/dL (32.0-36.0); Mean Corpuscular Hemoglobin 28.7 pg (27.0-31.0); Mean Corpuscular Volume 86.8 fl (78.0-98.0); Platelet Count 206 10x3/uL (130-400); RBC Distribution Width 13.2 % (11.5-14.5); Red Blood Cell (RBC) Count 4.39 mill/uL (4.20-5.40); White Blood Cell (WBC) Count 10.6 10x3/uL (4.8-10.8)
[2023-03-30 22:33] LABS: ALT (SGPT) 13 U/L (8-55); AST (SGOT) 20 U/L (5-34); Albumin 4.3 g/dL (3.4-4.8); Alkaline Phosphatase 111 U/L (40-110); Anion Gap 12 mmol/L (10-20); BUN (Urea Nitrogen) 19 mg/dL (9.8-20.1); Bilirubin, Total 0.4 mg/dL (0.2-1.2); Calc. Creatinine Clearance 0 mL/min (70-130); Calcium 9.5 mg/dL (7.8-10.44); Carbon Dioxide 28 mmol/L (23-31); Chloride 104 mmol/L (98-107); Estimated GFR 57; Globulin 2.6 g/dL (2.4-3.5); Glucose 105 mg/dL (83-110); Potassium 3.9 mmol/L (3.5-5.1); Protein, Total 6.9 g/dL (5.8-8.1); Sodium 140 mmol/L (136-145)
[2023-03-30] MEDS ORDERED: Morphine 4 MG/ML VIAL ONE (22:47)
== END 2023-03-31 00:30 | disposition home or self-care (01) ==
LOC: ERS 20:26
DX: S30.0XXA Contusion of lower back and pelvis, initial encounter (principal); R42 Dizziness and giddiness; I10 Essential (primary) hypertension; I25.2 Old myocardial infarction; W01.0XXA Fall on same level from slipping, tripping and stumbling without subsequent striking against object, initial encounter
CPT/HCPCS: 36415; 72131; 80053; 85025; 93005; 96374; 96375; J1885; J2270

== ENCOUNTER 2023-04-01 00:19 | Emergency (ER) | payer MEDICARE, OTHER ==
[2023-04-01] MEDS ORDERED: Ketorolac Tromethamine 30 MG (1 mL) VIAL ONE (01:47)
[2023-04-01] MEDS ORDERED: Ondansetron PF 4 MG/2 ML Vial ONE (01:47)
[2023-04-01] MEDS ORDERED: Morphine 4 MG/ML VIAL ONE (01:47)
[2023-04-01 02:43] LABS: #Eosinphils 0.1 thou/uL (0.0-0.7); #Monocytes 0.6 thou/uL (0.11-0.59); #Neutrophils 8.2 thou/uL (1.40-6.50); %Basophils 0.2 % (0.0-1.0); %Eosinophils 1.1 % (0.0-10.0); %Lymphocytes 19.4 % (21.0-51.0); %Monocytes 5.6 % (0.0-10.0); %Neutrophils 73.3 % (42.0-75.0); Hematocrit 38.5 % (36.0-47.0); Hemoglobin 12.8 g/dL (12.0-16.0); Mean Corpuscular HGB CONC 33.2 g/dL (32.0-36.0); Mean Corpuscular Hemoglobin 27.9 pg (27.0-31.0); Mean Corpuscular Volume 84.1 fl (78.0-98.0); Platelet Count 204 10x3/uL (130-400); RBC Distribution Width 13.2 % (11.5-14.5); Red Blood Cell (RBC) Count 4.58 mill/uL (4.20-5.40); White Blood Cell (WBC) Count 11.2 10x3/uL (4.8-10.8)
[2023-04-01 03:09] LABS: ALT (SGPT) 13 U/L (8-55); AST (SGOT) 19 U/L (5-34); Albumin 4.5 g/dL (3.4-4.8); Alkaline Phosphatase 106 U/L (40-110); Anion Gap 12 mmol/L (10-20); BUN (Urea Nitrogen) 23 mg/dL (9.8-20.1); Bilirubin, Total 0.5 mg/dL (0.2-1.2); CK (CPK) 161 U/L (29-168); Calc. Creatinine Clearance 0 mL/min (70-130); Calcium 9.8 mg/dL (7.8-10.44); Carbon Dioxide 29 mmol/L (23-31); Chloride 102 mmol/L (98-107); Estimated GFR 66; Globulin 2.8 g/dL (2.4-3.5); Glucose 108 mg/dL (83-110); Protein, Total 7.3 g/dL (5.8-8.1); Sodium 139 mmol/L (136-145)
== END 2023-04-01 05:40 | disposition home or self-care (01) ==
LOC: ERS 00:19
DX: M54.50 Low back pain, unspecified (principal); M48.54XA Collapsed vertebra, not elsewhere classified, thoracic region, initial encounter for fracture; I10 Essential (primary) hypertension; I25.2 Old myocardial infarction; Z79.82 Long term (current) use of aspirin; W01.198A Fall on same level from slipping, tripping and stumbling with subsequent striking against other object, initial encounter; Z79.899 Other long term (current) drug therapy
CPT/HCPCS: 80053; 82550; 85025; 99283; J1885; J2270; J2405

== ENCOUNTER 2023-04-11 18:53 | Emergency (ER) | payer MEDICARE, OTHER ==
[2023-04-11] MEDS ORDERED: HYDROcodone/Acetaminophen 5/325 mg Tablet ONE (21:03)
[2023-04-11] MEDS ORDERED: Cyclobenzaprine 10 MG TAB ONE (21:03)
== END 2023-04-11 21:50 | disposition home or self-care (01) ==
LOC: ERS 18:53
DX: S39.012A Strain of muscle, fascia and tendon of lower back, initial encounter (principal); I10 Essential (primary) hypertension; I25.2 Old myocardial infarction; G93.32 Myalgic encephalomyelitis/chronic fatigue syndrome; M79.7 Fibromyalgia; C53.9 Malignant neoplasm of cervix uteri, unspecified; M72.2 Plantar fascial fibromatosis; M19.90 Unspecified osteoarthritis, unspecified site; W10.1XXA Fall (on)(from) sidewalk curb, initial encounter; Z87.891 Personal history of nicotine dependence
CPT/HCPCS: 71045

== ENCOUNTER 2023-07-03 13:44 | Outpatient (CLI) | payer MEDICARE | END 2023-07-03 13:45 | disposition home or self-care (01) | LOC: SCSMRI 13:44 | PROVIDERS: ATTEND Family Medicine | DX: S22.089A Unspecified fracture of T11-T12 vertebra, initial encounter for closed fracture (principal); S32.019A Unspecified fracture of first lumbar vertebra, initial encounter for closed fracture; M54.50 Low back pain, unspecified; M48.061 Spinal stenosis, lumbar region without neurogenic claudication; M43.8X6 Other specified deforming dorsopathies, lumbar region; R60.0 Localized edema | CPT/HCPCS: 72148 ==